=== PATIENT | female | born 1985 | race Caucasian/White ===

== ENCOUNTER 2020-08-21 16:24 | Emergency (ER) | payer OTHER, SELFPAY ==
[2020-08-21 16:35] VITALS: BP 102/61; PULSE 77; RESP 16; TEMP 36.8; O2SAT 100
--- NOTE | 2020-08-21 16:56 | ED.DENTAL ---
HPI - Dental/Oral General Chief complaint: Dental/Oral Stated complaint: Dental/Oral Source: patient Mode of arrival: ambulatory Limitations: no limitations History of Present Illness HPI Narrative: Patient is a 35-year-old female who presents with right-sided dental pain x1 to 2 days. She reports history of dental infections. She reports chipped and broken teeth. She denies taking vtih-lor-aibatht medications at this time. She denies all other complaints. MD Complaint: tooth pain Related Data Allergies Allergy/AdvReac Type Severity Reaction Status Date / Time No Known Allergies Allergy Mild Verified 08/21/20 16:40 Review of Systems Review of Systems: Narrative: CONSTITUTIONAL: Denies fever, chills, or sweats. EYES: Denies visual changes, redness, or discharge. ENT: Reports right-sided dental pain CARDIOVASCULAR: Denies chest pain, palpitations, or edema. RESPIRATORY: Denies cough or dyspnea. GASTROINTESTINAL: Denies abdominal pain, nausea, vomiting, or diarrhea. GENITOURINARY: Denies dysuria or hematuria. SKIN: Denies rash or itching. MUSCULOSKELETAL: Denies back pain, joint pain, or myalgia. NEUROLOGIC: Denies headache, numbness, dizziness, or weakness. PSYCHIATRIC: Denies anxiety or depression. PMFSH Past Medical History Medical History STD (female) Surgical History Surgical History No significant past surgical history Family History Family History Other Arthritis Cancer Cerebrovascular accident Social History Social History (Updated 08/21/20 @ 16:59 by RICHIE Tatum) Smoking status: Current every day smoker Tobacco type: cigarettes Alcohol intake: current Alcohol use details: Patient Exam Narrative: Exam Narrative: GENERAL: Well-appearing, well-nourished, and in no acute distress. HEAD: Normocephalic, atraumatic. EYES: No redness or drainage. ENT: Mucous membranes pink and moist. Multiple dental caries and dental fractures. CHEST: No respiratory distress. EXTREMITIES: Normal range of motion. SKIN: Warm, dry, no rash. NEURO: No focal deficits. Alert and oriented x3. Gait steady. PSYCH: Normal affect. No signs of depression or anxiety. Course Vital Signs Vital signs: Vital Signs Temperature 36.8 C 08/21/20 16:35 Pulse Rate 77 08/21/20 16:35 Respiratory Rate 16 08/21/20 16:35 Blood Pressure 102/61 08/21/20 16:35 Pulse Oximetry 100 08/21/20 16:35 Temperature 36.8 C 08/21/20 16:35 Pulse Rate 77 08/21/20 16:35 Respiratory Rate 16 08/21/20 16:35 Blood Pressure 102/61 08/21/20 16:35 Pulse Oximetry 100 08/21/20 16:35 Reviewed MDM - Dental/Oral MDM Narrative Medical decision making narrative: Patient has poor dentition. Likely dental infection or abscess. Patient will be started on antibiotics at this time. Patient aware the need to see dentist. She may take ibuprofen or Tylenol for pain. Patient is stable for discharge to home with outpatient follow-up as needed. Differential Diagnosis Differential diagnosis: Likely gingival abscess, dental caries, toothache, dental abscess and fracture of tooth Critical Care Time Critical Care Time Critical Care Time: No Discharge Plan Discharge Clinical Impression: Toothache Patient Disposition: Home, Self-Care Condition: Stable Instructions: Antibiotic Form, Dental Abscess (ED), Toothache (ED) Prescriptions: New penicillin V potassium 250 mg/5 mL recon soln 500 mg PO QID 7 Days Qty: 280 RF: 0 ibuprofen 800 mg tablet 800 mg PO TID PRN (Reason: pain) Qty: 20 RF: 0 Follow-up/Referrals: PHYSICIAN,[facility] [Primary Care Provider] - Stand Alone Forms: Work/School Release IP Time of Disposition: 17:05
== END 2020-08-21 17:09 | disposition home or self-care (01) ==
PROVIDERS: Emergency Provider Nurse Practitioner
DX: K08.89 Other specified disorders of teeth and supporting structures (principal); F17.210 Nicotine dependence, cigarettes, uncomplicated
CPT/HCPCS: 99213; G0463